=== PATIENT | male | born 1990 | race Two or more races ===

== ENCOUNTER → 2024-11-16 | Day surgery (SDC) | payer OTHER ==
[~2024-11-16] MED LIST: CEFAZOLIN SODIUM 1,000 MG VIAL ONE; LIDOCAINE HCL 1% 10ML VIAL ONE; TYLENOL ARTHRI650 MG PO
== END | disposition home or self-care (01) ==
LOC: ADM 11-13 07:45 → CIR.AMB 07:45
PROVIDERS: ATTEND Surgery
DX: D21.6 Benign neoplasm of connective and other soft tissue of trunk, unspecified (principal)